=== PATIENT | female | born 1975 | race Hispanic/Latino ===

== ENCOUNTER 2018-06-29 14:45 | Observation (INO) | payer OTHER ==
[2018-06-29 17:12] LABS: #Basophils 0.1 thou/uL (0.0-0.2); #Eosinphils 0.2 thou/uL (0.0-0.7); #Lymphocytes 2.8 thou/uL (1.20-3.40); #Monocytes 0.5 thou/uL (0.11-0.59); #Neutrophils 5.1 thou/uL (1.40-6.50); %Basophils 1.4 % (0.0-1.0); %Eosinophils 1.8 % (0.0-10.0); %Lymphocytes 31.8 % (21.0-51.0); %Monocytes 5.9 % (0.0-10.0); Hemoglobin 7.2 g/dL (12.0-16.0); Mean Corpuscular HGB CONC 29.8 g/dL (32.0-36.0); Mean Corpuscular Hemoglobin 21.1 pg (27.0-31.0); Mean Corpuscular Volume 70.6 fL (78.0-98.0); Mean Platelet Volume 9.4 fL (7.4-10.4); Platelet Count 432 thou/uL (130-400); RBC Distribution Width 21.2 % (11.5-14.5); Red Blood Cell (RBC) Count 3.44 mill/uL (4.20-5.40); White Blood Cell (WBC) Count 8.7 thou/uL (4.8-10.8)
[2018-06-29 17:26] LABS: Anisocytosis MODERATE=16-30 cells (100X) (0-5/hpf); Elliptocytes SLIGHT = 2-5 cells (100X) (0-1/hpf); Hypochromia SLIGHT = 6-15 cells (100X) (0-5/hpf); MDiff Complete? YES; Microcytosis SLIGHT = 6-15 cells (100X) (0-5/hpf); Ovalocytes SLIGHT = 2-5 cells (100X) (0-1/hpf); PLT Morphology Comment Appears Increased; Polychromasia MODERATE = 3-4 cells (100X) (0-2/hpf); Schistocytes SLIGHT = 2-5 cells (100X) (0-1/hpf); Target Cells SLIGHT = 2-5 cells (100X) (0-1/hpf)
[2018-06-29 18:34] LABS: INR-International Normal Ratio 1.1; PTT 26.4 SEC (22.9-36.1); Prothrombin Time 13.9 SEC (12.0-14.7)
[2018-06-29 18:51] LABS: ALT (SGPT) 13 U/L (8-55); AST (SGOT) 15 U/L (5-34); Albumin 4.3 g/dL (3.5-5.0); Alkaline Phosphatase 71 U/L (40-150); Anion Gap 9 mmol/L (10-20); BUN (Urea Nitrogen) 8 mg/dL (7.0-18.7); Bilirubin, Total 0.4 mg/dL (0.2-1.2); Calc. Creatinine Clearance 0 mL/min (70-130); Calcium 8.6 mg/dL (7.8-10.44); Carbon Dioxide 25 mmol/L (22-29); Chloride 106 mmol/L (98-107); Estimated GFR-MDRD Greater than 90; Globulin 3.1 g/dL (2.4-3.5); Glucose 90 mg/dL (70-105); Potassium 3.6 mmol/L (3.5-5.1); Protein, Total 7.4 g/dL (6.0-8.3); Sodium 136 mmol/L (136-145)
[2018-06-29 21:56] LABS: Iron Binding Capacity, Total 479 mcg/dL (265-497)
[2018-06-29 21:57] LABS: Iron 12 ug/dL (50-170); Iron Binding Capacity, Total 479 mcg/dL (265-497)
[2018-06-29 22:16] LABS: Reticulocyte Count 2.3 % (0.5-1.5)
[2018-06-29 22:35] LABS: Band 5 % (5-11); Eosinophils 1 % (0-10); Hemoglobin 7.3 g/dL (12.0-16.0); Lymphocytes 31 % (21-51); MDiff Complete? YES; Mean Corpuscular HGB CONC 29.6 g/dL (32.0-36.0); Mean Corpuscular Hemoglobin 21.2 pg (27.0-31.0); Mean Corpuscular Volume 71.6 fL (78.0-98.0); Mean Platelet Volume 9.2 fL (7.4-10.4); Monocytes 4 % (0-10); Neutrophil 58 % (42-75); PLT Morphology Comment Appears Increased; Platelet Count 438 thou/uL (130-400); RBC Distribution Width 20.9 % (11.5-14.5); Red Blood Cell (RBC) Count 3.45 mill/uL (4.20-5.40); White Blood Cell (WBC) Count 9.1 thou/uL (4.8-10.8)
[2018-06-30 00:11] VITALS: BMI 43.3
[2018-06-30] MEDS ORDERED: Acetaminophen 325 MG TAB PO PRN (01:29)
[2018-06-30] MEDS ORDERED: Ondansetron HCl/PF 4 MG/2 ML Vial IVP PRN (01:29)
[2018-06-30] MEDS ORDERED: Ondansetron ODT 4 MG TAB PO PRN (01:29)
[2018-06-30] MEDS ORDERED: Senokot 8.6 MG TAB PO PRN (01:29)
[2018-06-30] MEDS ORDERED: Sodium Ferric Gluconate 250 MG in Sodium Chloride 0.9% 250 ML 250 ML IVPB SCH (02:00)
--- NOTE | 2018-06-30 02:10 | HP ---
DATE OF ADMISSION: 06/29/2018 PRIMARY CARE PHYSICIAN: The patient is an inmate. CHIEF COMPLAINT: Abnormal labs. HISTORY OF PRESENT ILLNESS: The patient is a 43-year-old female with hypothyroidism, morbid obesity and menorrhagia in the past, presented to the emergency room with abnormal labs. She was fo und to have hemoglobin of 7.1. The patient has a long history of heavy periods. Five years ago, she was diagnosed with a uterine cy st that was removed. She was also told that the uterus is larger in size (approximately 3 months pre gnant uterus per patient report). Until 2 months ago, her periods were lasting approximately 1.5-2 w eeks. She denies significant cramping. Over the last 2 months, the patient has shortness of breath that is progressively getting worse. Lately, she gets short of breath on mild to moderate exertion. She denies any melena, hematochezia, or hematemesis. She has taken iron supplements in the past. PAST MEDICAL HISTORY: 1. Hypothyroidism. 2. Chronic low back pain. PAST SURGICAL HISTORY: Cyst removal from the uterus. ALLERGIES: No known drug allergies. CURRENT HOME MEDICATIONS: Levothyroxine 75 mcg daily. SOCIAL HISTORY: The patient is an inmate. No smoking, alcohol or drug use. FAMILY HISTORY: Positive for hypertension. REVIEW OF SYSTEMS: The following complete review of systems was negative, unless otherwise mentioned in the HPI or below: Constitutional: Weight loss or gain, ability to conduct usual activities. Sk in: Rash, itching. Eyes: Double vision, pain. ENT/Mouth: Nose bleeding, neck stiffness, pain, te nderness. Cardiovascular: Palpitations, dyspnea on exertion, orthopnea. Respiratory: Shortness of breath, wheezing, cough, hemoptysis, fever or night sweats. Gastrointestinal: Poor appetite, abdom inal pain, heartburn, nausea, vomiting, constipation, or diarrhea. Genitourinary: Urgency, frequenc y, dysuria, nocturia. Musculoskeletal: Pain, swelling. Neurologic/Psychiatric: Anxiety, depressio n. Allergy/Immunologic: Skin rash, bleeding tendency. PHYSICAL EXAMINATION: VITAL SIGNS: Temperature 97.9, respirations 16, pulse 86, blood pressure 122/65, O2 saturation 100% on room air. GENERAL: A 43-year-old female, in no apparent distress. Denies any chest pain. HEENT: Head atraumatic, normocephalic. Sclerae are anicteric. Moist mucous membrane. No oral lesi on. NECK: Supple. No JVD appreciated. No carotid bruit. LUNGS: Clear to auscultation bilaterally. No wheezing, rales or rhonchi. HEART: S1, S2 present. Regular rate and rhythm. No murmur, rubs, or gallops appreciated. ABDOMEN: Soft, nontender, bowel sounds present. EXTREMITIES: 1+ edema in bilateral lower extremities. No calf tenderness. SKIN: Warm and dry. LYMPH NODES: No palpable lymph nodes in the neck. PERIPHERAL VASCULAR: Radial pulses palpable bilaterally. MUSCULOSKELETAL: No joint swelling or tenderness. LABORATORY FINDINGS: 1. Reticulocyte 2.3 with hemoglobin 7.3, MCV 71.6, RDW was 20.9. 2. PT, INR, PTT normal range. 3. Ferritin of less than 2, iron 12, TIBC 479. IMPRESSION: 1. Symptomatic anemia secondary to chronic menorrhagia, status post 1 unit packed red blood cells. 2. Anemia secondary to chronic blood loss from menorrhagia. 3. Morbid obesity with a BMI of 43.3. 4. Hypothyroidism. 5. Iron deficiency. PLAN: The patient will be monitored on the medical floor. She received 1 unit of PRBC. We will adm inister 200 mg of iron sucrose complex. We will consult OUTREACH SPECIALIST Hospitalist, Dr. Sánchez in a.m. We will check peripheral smear. We will start her on oral iron supplementation. Plan of care was discussed with the patient in detail. She stated understanding.
--- NOTE | 2018-06-30 08:16 | PDOC.EVN ---
Event Note - Event Note Event Note: 06/30/18 OBGYN clam grader PLASTIC AND RECONSTRUCTIVE SURGEON Consult note Location: 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 She has received 1 unit PRBC, HX hypothyroidism. HPI: Patient is a 43 yo with HX of "uterine cyst" removal in past, being observed by medicine for HMB. Admit Hgb was 7.3. CMP was normal. Patient is an inmate. Past medical: Hypothyroidism Allergies: none Past surgical" "uterine cyst" Labs: as per HPI Ordered: Agriculture Mechanic sono; I just ordered a TSH Meds: synthroid Physical: pending Assessment and plan: Chronic anemia with HMB: 1. Needs air compressor operator sono 2. S/P 1 unit PRBC 3. May need oral high dose provera to suppress cycle. I prefer [id number] med due to BMI 4. Needs EMB-- I will try to acquire while in hospital
[2018-06-30] MEDS: Ferrous Sulfate 325 MG TAB PO SCH ×2 (08:20→15:56)
--- NOTE | 2018-06-30 08:22 | PDOC.EVN ---
Event Note - Event Note Event Note: @821: I have just called and asked for the patient (with guard) to come up to plant etiologist floor 3SE for EMB. Awaiting patient availability.
[2018-06-30] MEDS ORDERED: Multivit, Therapeutic 1 TAB PO SCH (09:00)
--- NOTE | 2018-06-30 09:29 | PDOC.EVN ---
Event Note - Event Note Event Note: OBGYN (EMB) PROCEDURE: EMB performed on 3SE for HX HMB...no VB now. Dr Lisseth Avila ( resident) present and assisted. Info provided to the patient and she agreed to EMB. Past surgical HX reviewed: HX D&C as only surgery (H&P correction) WE collected a VP3...white creamy dsch noted suspicious for BV. VP3 sent. Than area prepped with betadine and EMB done X 3 passes. No tenaculum used. patient tolerated well. No CX lesions. Plan: 1. Tisue to path 2. Her facility to follow up results 3. VP3 sent...her facility to follow up results 4. Emperic RX for BV..Flagyl 500mh po BID ordered in [employer] and RX given for 7 days Plan fully reviewed with the patient. Plan d/w [facility] MD lathe operator contact lens.
--- NOTE | 2018-06-30 09:33 | PDOC.EVN ---
Event Note - Event Note Event Note: Patient now going to Ultrasound
--- NOTE | 2018-06-30 10:42 | ULT ---
PELVIC ULTRASOUND: Transabdominal and endovaginal ultrasound of pelvis performed. INDICATION: Abnormal menses. FINDINGS: Uterus is mildly prominent measuring 11.6 x 5.8 x 7.1 cm. There is evidence of a hypoechoic fibroid from the left myometrium measuring 3-4 cm. The endometrium is prominent measuring 1.8 to 2 cm thickness. Both ovaries are identified. There is a 2.5 to 3 cm cyst involving the left ovary. Color Doppler an d spectral analysis demonstrates normal blood flow to the left ovary. Doppler to the right ovary is difficult to confirm due to body habitus. Right ovary appears unremarkable. IMPRESSION: 1. Thickened endometrium. 2. Uterine fibroid. 3. Left ovarian cyst. POS: [facility]
[2018-06-30 12:23] LABS: #Basophils 0.1 thou/uL (0.0-0.2); #Eosinphils 0.1 thou/uL (0.0-0.7); #Lymphocytes 2.4 thou/uL (1.20-3.40); #Monocytes 0.3 thou/uL (0.11-0.59); #Neutrophils 4.3 thou/uL (1.40-6.50); %Basophils 1.1 % (0.0-1.0); %Eosinophils 1.6 % (0.0-10.0); %Monocytes 4.6 % (0.0-10.0); %Neutrophils 59.7 % (42.0-75.0); Anisocytosis SLIGHT = 6-15 cells (100X) (0-5/hpf); Hemoglobin 8.1 g/dL (12.0-16.0); MDiff Complete? YES; Macrocytosis SLIGHT = 6-15 cells (100X) (0-5/hpf); Mean Corpuscular HGB CONC 31.9 g/dL (32.0-36.0); Mean Corpuscular Volume 72.1 fL (78.0-98.0); Mean Platelet Volume 9.3 fL (7.4-10.4); Microcytosis SLIGHT = 6-15 cells (100X) (0-5/hpf); Platelet Count 368 thou/uL (130-400); Polychromasia SLIGHT = 2-3 cells (100X) (0-2/hpf); RBC Distribution Width 21.6 % (11.5-14.5); Red Blood Cell (RBC) Count 3.54 mill/uL (4.20-5.40); Schistocytes SLIGHT = 2-5 cells (100X) (0-1/hpf); Target Cells SLIGHT = 2-5 cells (100X) (0-1/hpf); White Blood Cell (WBC) Count 7.2 thou/uL (4.8-10.8)
--- NOTE | 2018-06-30 12:24 | PDOC.EVN ---
Event Note - Event Note Event Note: OBGYN: kinga note: small uterine fibroid noted...small ovarian cyst <3cm; ES 2cm. EMB done and results pending. TSH pending. Will need [employer] follow up. Patient is an inmate and will have her request her records from here to provide OBGYN outpatient referral from her facility.
--- NOTE | 2018-06-30 12:27 | PDOC.EVN ---
Event Note - Event Note Event Note: VP3...patient has BV and trich: flagyl has been ordered. For compliance, I will call Int Med to make sure they start her flagyl dose. I did write an RX for flagyl. Also, needs HIV and RPR and Hep C testing.
--- NOTE | 2018-06-30 12:30 | PDOC.EVN ---
Event Note - Event Note Event Note: Labs for STI check discussed with Int Med just now
--- NOTE | 2018-06-30 12:37 | PDOC.EVN ---
Event Note - Event Note Event Note: MEDS: I have just called pharmacy: I have cancelled the flagyl 500mg po BID and changed to Flagyl 2 grams po QD X 2 days for ease of use to ensure RX compliance for the TRICH.
[2018-06-30] MEDS ORDERED: metroNIDAZOLE 500 MG TAB PO SCH ×2 (12:45→21:00)
--- NOTE | 2018-06-30 12:59 | PDOC.EVN ---
Event Note - Event Note Event Note: GC and Chl urine test
[2018-06-30 13:56] LABS: HIV (1/2) Antibody/Antigen Non-Reactive (NonReactive); Hep C IgG Ab Non-Reactive (NonReactive); Hep C Index 0.05 S/CO (0-0.79); Syphilis Antibody Nonreactive (Nonreactive); Syphilis Antibody Index 0.04 S/CO (<1.00 Non-Reactive)
--- NOTE | 2018-06-30 14:01 | PDOC.EVN ---
Event Note - Event Note Event Note: TSH wnl, RPR neg
--- NOTE | 2018-06-30 14:27 | PDOC.EVN ---
Event Note - Event Note Event Note: HIV/Hep C neg
--- NOTE | 2018-06-30 14:30 | PDOC.EVN ---
Event Note - Event Note Event Note: TRICH and STI information given to the patient
[2018-06-30 16:05] VITALS: BP 118/68; TEMP 98.1
[2018-07-02 23:56] LABS: Chlamydia by PCR Not Detected (NotDetected); GC by PCR Not Detected (NotDetected)
== END 2018-06-30 16:45 ==
LOC: ERS 14:45 → 2SW 23:43
PROVIDERS: ADMIT Internal Medicine; ATTEND Internal Medicine
PROC: 0UDB7ZX Extraction of Endometrium, Via Natural or Artificial Opening, Diagnostic (ICD-10-PCS; principal; 2018-06-30)
DX: N92.0 Excessive and frequent menstruation with regular cycle (principal); D50.0 Iron deficiency anemia secondary to blood loss (chronic); E03.9 Hypothyroidism, unspecified; G89.29 Other chronic pain; M54.9 Dorsalgia, unspecified; E66.01 Morbid (severe) obesity due to excess calories; Z68.41 Body mass index [BMI] 40.0-44.9, adult; Z79.899 Other long term (current) drug therapy; Z90.79 Acquired absence of other genital organ(s)
CPT/HCPCS: 36415; 36430; 76856; 80053; 82274; 82728; 83540; 83550; 84443; 85025; 85046; 85060; 85610; 85730; 86780; 86803; 86850; 86900; 86901; 87389; 87480; 87491; 87510; 87591; 87660; 88305; 96365; 96366; G0378; J2916; J7050; P9016